=== PATIENT | female | born 1945 | race African-American/Black ===

== ENCOUNTER 2017-02-19 12:43 | Inpatient (IN) | payer MEDICARE ==
[~2017-02-19] VITALS: Ht 160 cm; Wt 57.4 kg
[2017-02-19] MEDS ORDERED: CloNIDine HCL 0.2 MG TABLET PO ONE (13:00)
[2017-02-19] MEDS ORDERED: ASPIRIN 325 MG TABLET PO ONE (13:00)
[2017-02-19] MEDS ORDERED: NITROGLYCERIN 2% (1 GM=INCH) PACKET TP ONE (13:15)
[2017-02-19 13:50] LABS: BASOPHILS % (AUTO) 0.4 % (0.0-2.0); EOSINOPHILS % (AUTO) 0.5 % (1.0-6.0); HEMATOCRIT 33.3 % (36-46); HEMOGLOBIN 11.4 g/dL (12.0-16.0); LYMPHOCYTES # (AUTO) 0.8 K/uL (1.0-4.8); MEAN CORPUSCULAR HEMOGLOBIN 30.3 pg (26.0-34.0); MEAN CORPUSCULAR HGB CONC 34.2 G/dL (31.0-37.0); MEAN CORPUSCULAR VOLUME 88 fL (80-100); MONOCYTES # (AUTO) 0.4 K/uL (0.1-1.0); MONOCYTES % (AUTO) 11.6 % (2.0-9.0); NEUTROPHILS # (AUTO) 2.2 K/uL (1.8-7.7); NEUTROPHILS % (AUTO) 64.5 % (40.0-70.0); PLATELET COUNT (AUTO) 276 K/uL (150-450); RED BLOOD CELL COUNT(AUTO) 3.76 MIL/uL (4.00-5.20); RED CELL DISTRIBUTION WIDTH 15.7 % (11.5-14.5); WHITE BLOOD COUNT (AUTO) 3.5 K/uL (4.5-11.0)
[2017-02-19 14:02] LABS: ANION GAP 12 mmol/L (8-16); CALCIUM, TOTAL 10.8 mg/dL (8.8-10.5); CARBON DIOXIDE 28 mmol/L (22-29); CHLORIDE 106 mmol/L (98-107); CREATININE 0.79 mg/dL (0.60-1.30); GLOMERULAR FILTR. RATE CALC > 60 mL/min (>60); POTASSIUM 3.4 mmol/L (3.5-5.1); SODIUM SERUM 146 mmol/L (136-145); UREA NITROGEN, BLOOD 7 mg/dL (7-18)
[2017-02-19 14:07] LABS: ALANINE AMINOTRANSFERASE 18 U/L (12-78); ALBUMIN 3.8 g/dL (3.4-5.0); ASPARTATE AMINOTRANSFERASE 24 U/L (15-37); BILIRUBIN,TOTAL 0.6 mg/dL (0.1-1.0); TOTAL PROTEIN, SERUM 8.2 g/dL (6.4-8.2)
[2017-02-19] MEDS ORDERED: ACETAMINOPHEN 325 MG TABLET PO PRN (15:15)
[2017-02-19] MEDS ORDERED: ONDANSETRON HCL 4 MG/2 ML VIAL IVP PRN (15:15)
[2017-02-19] MEDS ORDERED: 0.9% SODIUM CHLORIDE 10 ML SYRINGE IVP PRN (15:15)
[2017-02-19] MEDS ORDERED: QUET25TA PO (15:23)
[2017-02-19] MEDS ORDERED: GABA-529 PO (15:23)
[2017-02-19] MEDS ORDERED: HYDR100T28 PO (15:23)
[2017-02-19] MEDS ORDERED: LISI1TAB9 PO (15:23)
[2017-02-19] MEDS ORDERED: METH10 PO (15:23)
[2017-02-19] MEDS ORDERED: MORPHINE SULFATE 2 MG/ML SYRINGE IVP PRN (16:30)
[2017-02-19] MEDS ORDERED: ZOLPIDEM TARTRATE 5 MG TABLET PO PRN (16:30)
[2017-02-19] MEDS ORDERED: MAGNESIUM HYDROXIDE SUSPENSION 30 ML UDCUP PO PRN (16:30)
[2017-02-19] MEDS ORDERED: BISACODYL 10 MG RECTAL RECTAL SUPPOSITORY PR PRN (16:30)
[2017-02-19 18:08] VITALS: BP 157/88
[2017-02-19] MEDS ORDERED: INFLUENZA VIRUS VACCINE QVS 2017-18 (3YR+)/PF 60 MCG/0.5 ML SYRINGE IM ONE (18:30)
[2017-02-19 19:56] VITALS: BP 152/89
[2017-02-19] MEDS: HYDROCODONE/ACETAMINOPHEN 5-325 MG TABLET PO PRN (20:41)
[2017-02-19] MEDS: DOCUSATE SODIUM 100 MG CAPSULE PO SCH (20:41)
[2017-02-19] MEDS: QUEtiapine FUMARATE 25 MG TABLET PO SCH (20:41)
[2017-02-19] MEDS: HydrALAZINE HCL 50 MG TABLET PO SCH (20:42)
[2017-02-19] MEDS: GABAPENTIN 100 MG CAPSULE PO SCH (20:42)
[2017-02-19] MEDS: HYDROCHLOROTHIAZIDE 25 MG TABLET PO SCH (20:42)
[2017-02-19 23:40] VITALS: BP 150/86
[2017-02-20 04:54] VITALS: BP 149/91
[2017-02-20] MEDS: ACETAMINOPHEN 325 MG TABLET PO PRN (06:06)
[2017-02-20 06:47] LABS: BASOPHILS % (AUTO) 0.6 % (0.0-2.0); EOSINOPHILS % (AUTO) 1.4 % (1.0-6.0); HEMATOCRIT 30.3 % (36-46); HEMOGLOBIN 10.5 g/dL (12.0-16.0); LYMPHOCYTES # (AUTO) 0.8 K/uL (1.0-4.8); LYMPHOCYTES % (AUTO) 29.1 % (22.0-44.0); MEAN CORPUSCULAR HEMOGLOBIN 30.5 pg (26.0-34.0); MEAN CORPUSCULAR HGB CONC 34.6 G/dL (31.0-37.0); MEAN CORPUSCULAR VOLUME 88 fL (80-100); MONOCYTES # (AUTO) 0.4 K/uL (0.1-1.0); MONOCYTES % (AUTO) 14.9 % (2.0-9.0); NEUTROPHILS # (AUTO) 1.5 K/uL (1.8-7.7); PLATELET COUNT (AUTO) 237 K/uL (150-450); RED BLOOD CELL COUNT(AUTO) 3.44 MIL/uL (4.00-5.20); RED CELL DISTRIBUTION WIDTH 15.8 % (11.5-14.5); WHITE BLOOD COUNT (AUTO) 2.9 K/uL (4.5-11.0)
[2017-02-20] MEDS: ONDANSETRON HCL 4 MG/2 ML VIAL IVP PRN (06:48)
[2017-02-20 07:08] VITALS: BP 143/81
[2017-02-20 07:37] LABS: ALANINE AMINOTRANSFERASE 23 U/L (12-78); ALBUMIN 3.3 g/dL (3.4-5.0); ANION GAP 9 mmol/L (8-16); ASPARTATE AMINOTRANSFERASE 26 U/L (15-37); BILIRUBIN,TOTAL 0.6 mg/dL (0.1-1.0); CALCIUM, TOTAL 10.4 mg/dL (8.8-10.5); CARBON DIOXIDE 29 mmol/L (22-29); CHLORIDE 105 mmol/L (98-107); CREATININE 0.81 mg/dL (0.60-1.30); GLOMERULAR FILTR. RATE CALC > 60 mL/min (>60); SODIUM SERUM 143 mmol/L (136-145); THYROID STIMULATING HORMONE 0.63 uIU/mL (0.36-3.74); TOTAL PROTEIN, SERUM 7.5 g/dL (6.4-8.2); UREA NITROGEN, BLOOD 7 mg/dL (7-18)
[2017-02-20] MEDS: HydrALAZINE HCL 50 MG TABLET PO SCH ×3 (08:02→20:28)
[2017-02-20] MEDS: HEPARIN SODIUM,PORCINE 5,000 UNITS/ML VIAL SQ SCH ×4 (08:02→23:52)
[2017-02-20] MEDS: METHADONE HCL 10 MG TABLET PO SCH (08:02)
[2017-02-20] MEDS: PANTOPRAZOLE SODIUM 40 MG DR TABLET PO SCH (08:02)
[2017-02-20] MEDS: GABAPENTIN 100 MG CAPSULE PO SCH ×4 (08:02→20:28)
[2017-02-20] MEDS: DOCUSATE SODIUM 100 MG CAPSULE PO SCH ×2 (08:02→20:28)
[2017-02-20] MEDS ORDERED: LISINOPRIL 10 MG TABLET PO SCH (09:00)
[2017-02-20] MEDS ORDERED: POTASSIUM CHL 10 MEQ/WATER 50 ML IV PRN (11:00)
[2017-02-20] MEDS ORDERED: POTASSIUM CHLORIDE 20 MEQ ER TABLET PO PRN (11:00)
[2017-02-20] MEDS: POTASSIUM CHLORIDE 20 MEQ ER TABLET PO PRN ×2 (12:20→17:35)
[2017-02-20 12:24] LABS: APPEARANCE,URINE CLOUDY (CLEAR); GLUCOSE, URINE (UA) NEGATIVE (NEGATIVE); KETONES,URINE NEGATIVE (NEGATIVE); LEUKOCYTE ESTERASE ,URINE SMALL (NEGATIVE); OCCULT BLOOD,URINE NEGATIVE (NEGATIVE); PROTEIN,URINE TRACE (NEGATIVE)
[2017-02-20 13:09] LABS: RBC,URINE 0-2 /HPF (0-2)
[2017-02-20 13:10] LABS: CALCIUM OXALATE CRYSTALS,UR Rare /LPF (None Seen); SQUAMOUS EPITHELIAL CELL,UR Many /LPF (None Seen)
[2017-02-20] MEDS: AmLODIPine BESYLATE 5 MG TABLET PO SCH (14:52)
[2017-02-20 15:31] VITALS: BP 121/82
[2017-02-20 19:57] VITALS: BP 128/72
[2017-02-20] MEDS: HYDROCHLOROTHIAZIDE 25 MG TABLET PO SCH (20:28)
[2017-02-20] MEDS: QUEtiapine FUMARATE 25 MG TABLET PO SCH (20:28)
[2017-02-21 00:05] VITALS: BP 134/84
[2017-02-21 07:19] LABS: HEMATOCRIT 35.4 % (36-46); HEMOGLOBIN 12.1 g/dL (12.0-16.0); LYMPHOCYTES # (AUTO) 1.3 K/uL (1.0-4.8); LYMPHOCYTES % (AUTO) 32.7 % (22.0-44.0); MEAN CORPUSCULAR HEMOGLOBIN 30.6 pg (26.0-34.0); MEAN CORPUSCULAR HGB CONC 34.3 G/dL (31.0-37.0); MEAN CORPUSCULAR VOLUME 89 fL (80-100); MONOCYTES # (AUTO) 0.5 K/uL (0.1-1.0); MONOCYTES % (AUTO) 13.1 % (2.0-9.0); NEUTROPHILS % (AUTO) 52.2 % (40.0-70.0); PLATELET COUNT (AUTO) 288 K/uL (150-450); RED BLOOD CELL COUNT(AUTO) 3.96 MIL/uL (4.00-5.20); RED CELL DISTRIBUTION WIDTH 16.5 % (11.5-14.5); WHITE BLOOD COUNT (AUTO) 3.9 K/uL (4.5-11.0)
[2017-02-21 07:33] VITALS: BP 150/83
[2017-02-21] MEDS: DOCUSATE SODIUM 100 MG CAPSULE PO SCH ×2 (08:28→20:47)
[2017-02-21] MEDS: HEPARIN SODIUM,PORCINE 5,000 UNITS/ML VIAL SQ SCH ×3 (08:30→23:41)
[2017-02-21] MEDS: LISINOPRIL 10 MG TABLET PO SCH (08:30)
[2017-02-21] MEDS: ONDANSETRON HCL 4 MG/2 ML VIAL IVP PRN (08:30)
[2017-02-21] MEDS: HydrALAZINE HCL 50 MG TABLET PO SCH ×3 (08:30→20:47)
[2017-02-21] MEDS: GABAPENTIN 100 MG CAPSULE PO SCH ×4 (08:30→20:43)
[2017-02-21] MEDS: PANTOPRAZOLE SODIUM 40 MG DR TABLET PO SCH (08:31)
[2017-02-21] MEDS: AmLODIPine BESYLATE 5 MG TABLET PO SCH (08:31)
[2017-02-21] MEDS: METHADONE HCL 10 MG TABLET PO SCH (08:31)
[2017-02-21] MEDS: LOPERAMIDE HCL 2 MG CAPSULE PO PRN (10:19)
[2017-02-21] MEDS: HYDROCODONE/ACETAMINOPHEN 5-325 MG TABLET PO PRN ×2 (10:51→16:49)
[2017-02-21 11:38] VITALS: BP 132/80
[2017-02-21] MEDS: METOPROLOL SUCCINATE 25 MG ER TABLET PO SCH (14:43)
[2017-02-21 15:33] VITALS: BP 138/78
[2017-02-21 19:32] VITALS: BP 109/67
[2017-02-21] MEDS: HYDROCHLOROTHIAZIDE 25 MG TABLET PO SCH (20:42)
[2017-02-21] MEDS: QUEtiapine FUMARATE 25 MG TABLET PO SCH (20:42)
[2017-02-21 23:46] VITALS: BP 114/71
[2017-02-22] VITALS (7 sets, daily range): BP systolic 114–139; BP diastolic 68–81
[2017-02-22 06:10] LABS: BASOPHILS % (AUTO) 0.7 % (0.0-2.0); EOSINOPHILS % (AUTO) 3.2 % (1.0-6.0); HEMATOCRIT 33.4 % (36-46); HEMOGLOBIN 11.4 g/dL (12.0-16.0); LYMPHOCYTES % (AUTO) 37.1 % (22.0-44.0); MEAN CORPUSCULAR HEMOGLOBIN 30.6 pg (26.0-34.0); MEAN CORPUSCULAR HGB CONC 34.1 G/dL (31.0-37.0); MEAN CORPUSCULAR VOLUME 90 fL (80-100); MONOCYTES # (AUTO) 0.4 K/uL (0.1-1.0); MONOCYTES % (AUTO) 13.5 % (2.0-9.0); NEUTROPHILS # (AUTO) 1.3 K/uL (1.8-7.7); NEUTROPHILS % (AUTO) 45.5 % (40.0-70.0); PLATELET COUNT (AUTO) 283 K/uL (150-450); RED BLOOD CELL COUNT(AUTO) 3.72 MIL/uL (4.00-5.20); WHITE BLOOD COUNT (AUTO) 2.8 K/uL (4.5-11.0)
[2017-02-22 06:29] LABS: ALANINE AMINOTRANSFERASE 22 U/L (12-78); ALBUMIN 3.2 g/dL (3.4-5.0); ANION GAP 6 mmol/L (8-16); ASPARTATE AMINOTRANSFERASE 26 U/L (15-37); BILIRUBIN,TOTAL 0.3 mg/dL (0.1-1.0); CALCIUM, TOTAL 10.4 mg/dL (8.8-10.5); CARBON DIOXIDE 32 mmol/L (22-29); CHLORIDE 103 mmol/L (98-107); GLOMERULAR FILTR. RATE CALC > 60 mL/min (>60); POTASSIUM 3.8 mmol/L (3.5-5.1); SODIUM SERUM 141 mmol/L (136-145); UREA NITROGEN, BLOOD 11 mg/dL (7-18)
[2017-02-22] MEDS: ACETAMINOPHEN 325 MG TABLET PO PRN (06:34)
[2017-02-22] MEDS ORDERED: CeFAZolin 2 GM/DEXTROSE 50 ML IV ONE (07:00)
[2017-02-22 07:49] LABS: TOTAL PROTEIN, SERUM 7.5 g/dL (6.4-8.2)
[2017-02-22] MEDS: LOPERAMIDE HCL 2 MG CAPSULE PO PRN (08:15)
[2017-02-22] MEDS: ONDANSETRON HCL 4 MG/2 ML VIAL IVP PRN (08:15)
[2017-02-22] MEDS: DOCUSATE SODIUM 100 MG CAPSULE PO SCH ×2 (09:00→20:59)
[2017-02-22] MEDS: RINGERS SOLUTION,LACTATED 1,000 ML IV SCH ×2 (09:04→21:10)
[2017-02-22] MEDS: HEPARIN SODIUM,PORCINE 5,000 UNITS/ML VIAL SQ SCH ×3 (09:17→23:18)
[2017-02-22] MEDS: GABAPENTIN 100 MG CAPSULE PO SCH ×4 (09:18→20:51)
[2017-02-22] MEDS: HydrALAZINE HCL 50 MG TABLET PO SCH ×3 (09:18→20:51)
[2017-02-22] MEDS: METHADONE HCL 10 MG TABLET PO SCH (09:18)
[2017-02-22] MEDS: METOPROLOL SUCCINATE 25 MG ER TABLET PO SCH (09:19)
[2017-02-22] MEDS: AmLODIPine BESYLATE 5 MG TABLET PO SCH (09:19)
[2017-02-22] MEDS: PANTOPRAZOLE SODIUM 40 MG DR TABLET PO SCH (09:19)
[2017-02-22] MEDS: LISINOPRIL 10 MG TABLET PO SCH (09:20)
[2017-02-22] MEDS ORDERED: AMLO5TAB66 PO (10:56)
[2017-02-22] MEDS ORDERED: METO25XL PO (10:56)
[2017-02-22] MEDS ORDERED: LISI10TA7 PO (10:56)
[2017-02-22] MEDS ORDERED: LOPE2 PO (10:57)
[2017-02-22] MEDS: HYDROCODONE/ACETAMINOPHEN 5-325 MG TABLET PO PRN ×2 (12:48→20:51)
[2017-02-22] MEDS: HYDROCHLOROTHIAZIDE 25 MG TABLET PO SCH (20:54)
[2017-02-22] MEDS: QUEtiapine FUMARATE 25 MG TABLET PO SCH (20:54)
[2017-02-23] MEDS: ACETAMINOPHEN 325 MG TABLET PO PRN (00:17)
[2017-02-23] MEDS: HYDROCODONE/ACETAMINOPHEN 5-325 MG TABLET PO PRN ×3 (02:19→18:31)
[2017-02-23 04:29] VITALS: BP 119/74
[2017-02-23 07:34] VITALS: BP 137/72
[2017-02-23] MEDS: DOCUSATE SODIUM 100 MG CAPSULE PO SCH (08:01)
[2017-02-23] MEDS: METHADONE HCL 10 MG TABLET PO SCH (08:01)
[2017-02-23] MEDS: GABAPENTIN 100 MG CAPSULE PO SCH ×3 (08:02→16:27)
[2017-02-23] MEDS: PANTOPRAZOLE SODIUM 40 MG DR TABLET PO SCH (08:02)
[2017-02-23] MEDS: ONDANSETRON HCL 4 MG/2 ML VIAL IVP PRN (08:02)
[2017-02-23] MEDS: HydrALAZINE HCL 50 MG TABLET PO SCH ×2 (08:02→16:27)
[2017-02-23] MEDS: HEPARIN SODIUM,PORCINE 5,000 UNITS/ML VIAL SQ SCH ×2 (08:03→16:28)
[2017-02-23] MEDS: LISINOPRIL 10 MG TABLET PO SCH (09:48)
[2017-02-23] MEDS: AmLODIPine BESYLATE 5 MG TABLET PO SCH (09:49)
[2017-02-23] MEDS: RINGERS SOLUTION,LACTATED 1,000 ML IV SCH (10:53)
[2017-02-23] MEDS: METOPROLOL SUCCINATE 25 MG ER TABLET PO SCH (10:58)
[2017-02-23 11:25] VITALS: BP 141/75
[2017-02-23 15:55] VITALS: BP 131/69
== END 2017-02-23 18:45 | DRG 641 ==
LOC: EMS 12:51 → 5S 16:02
PROVIDERS: ADMIT Internal Medicine; ATTEND Internal Medicine
DX: E87.0 Hyperosmolality and hypernatremia (principal); G25.82 Stiff-man syndrome; R65.10 Systemic inflammatory response syndrome (SIRS) of non-infectious origin without acute organ dysfunction; I16.0 Hypertensive urgency; E87.6 Hypokalemia; M54.9 Dorsalgia, unspecified; I44.7 Left bundle-branch block, unspecified; I10 Essential (primary) hypertension; R50.9 Fever, unspecified; R74.8 Abnormal levels of other serum enzymes; R10.13 Epigastric pain; R07.9 Chest pain, unspecified; Z79.899 Other long term (current) drug therapy; Z88.2 Allergy status to sulfonamides; Z87.440 Personal history of urinary (tract) infections; Z86.19 Personal history of other infectious and parasitic diseases
CPT/HCPCS: 84132; 84443; 87040; 87081; 87086; 90471; 93005; 93306; 97162; 97166; 97530; 99291; J0690; J1644; J2405; J7120

== ENCOUNTER 2017-03-06 11:44 | Inpatient (IN) | payer MEDICARE ==
[~2017-03-06] VITALS: Ht 165.1 cm; Wt 58.7 kg
[~2017-03-06 11:44] MED LIST: AMLO5TAB66 PO; GABA-529 PO; HYDR100T28 PO; LISI10TA7 PO; LOPE2 PO; METH10 PO; METO25XL PO; QUET25TA PO
[2017-03-06] MEDS ORDERED: LIDO700A30 TD (12:33)
[2017-03-06] MEDS ORDERED: HYDR25TA PO (12:33)
[2017-03-06] MEDS ORDERED: PANT40TA25 PO (12:33)
[2017-03-06] MEDS ORDERED: SODIUM CHLORIDE 0.9% 1,000 ML IV ONE (12:45)
[2017-03-06] MEDS ORDERED: ALBUTEROL SULFATE 2.5 MG/0.5 ML NEB SOLUTION NEB ONE (12:45)
[2017-03-06] MEDS ORDERED: IPRATROPIUM BROMIDE 0.5 MG/2.5 ML NEB SOLUTION NEB ONE (12:45)
[2017-03-06] MEDS ORDERED: KETOROLAC TROMETHAMINE 30 MG/ML VIAL IVP ONE (12:45)
[2017-03-06] MEDS ORDERED: ASPIRIN 81 MG CHEWABLE TABLET PO ONE (13:30)
[2017-03-06] MEDS ORDERED: MORPHINE SULFATE 4 MG/ML SYRINGE IVP ONE ×2 (15:00→17:00)
[2017-03-06] MEDS ORDERED: ONDANSETRON HCL 4 MG/2 ML VIAL IVP ONE ×2 (15:00→17:00)
[2017-03-06 15:22] LABS: BASOPHILS % (AUTO) 0.1 % (0.0-2.0); EOSINOPHILS % (AUTO) 0.1 % (1.0-6.0); HEMATOCRIT 32.9 % (36-46); HEMOGLOBIN 11.3 g/dL (12.0-16.0); LYMPHOCYTES # (AUTO) 0.6 K/uL (1.0-4.8); LYMPHOCYTES % (AUTO) 19.5 % (22.0-44.0); MEAN CORPUSCULAR HEMOGLOBIN 30.4 pg (26.0-34.0); MEAN CORPUSCULAR HGB CONC 34.4 G/dL (31.0-37.0); MEAN CORPUSCULAR VOLUME 88 fL (80-100); MONOCYTES # (AUTO) 0.6 K/uL (0.1-1.0); MONOCYTES % (AUTO) 18.4 % (2.0-9.0); NEUTROPHILS # (AUTO) 1.9 K/uL (1.8-7.7); NEUTROPHILS % (AUTO) 61.9 % (40.0-70.0); PLATELET COUNT (AUTO) 209 K/uL (150-450); RED BLOOD CELL COUNT(AUTO) 3.73 MIL/uL (4.00-5.20); RED CELL DISTRIBUTION WIDTH 15.4 % (11.5-14.5)
[2017-03-06 15:23] LABS: ANION GAP 14 mmol/L (8-16); CALCIUM, TOTAL 10.7 mg/dL (8.8-10.5); CARBON DIOXIDE 25 mmol/L (22-29); CHLORIDE 98 mmol/L (98-107); GLOMERULAR FILTR. RATE CALC 54 mL/min (>60); GLUCOSE,RANDOM 122 mg/dL (70-110); POTASSIUM 3.7 mmol/L (3.5-5.1); SODIUM SERUM 137 mmol/L (136-145); UREA NITROGEN, BLOOD 24 mg/dL (7-18)
[2017-03-06 15:29] LABS: ALANINE AMINOTRANSFERASE 38 U/L (12-78); ALBUMIN 3.4 g/dL (3.4-5.0); ALKALINE PHOSPHATASE 56 U/L (46-116); ASPARTATE AMINOTRANSFERASE 47 U/L (15-37); BILIRUBIN,TOTAL 0.4 mg/dL (0.1-1.0); CREATINE KINASE, TOTAL 60 U/L (26-192); TOTAL PROTEIN, SERUM 8.1 g/dL (6.4-8.2)
[2017-03-06 15:31] LABS: INFLUENZA TYPE B NEGATIVE FOR TYPE B (NEGATIVE)
[2017-03-06 15:35] LABS: INFLUENZA TYPE A POSITIVE FOR TYPE A (NEGATIVE)
[2017-03-06 15:38] LABS: B-TYPE NATRIURETIC PEPTIDE 35 pg/mL (0-100)
[2017-03-06 15:41] LABS: PLATELET MORPHOLOGY COMMENT NORMAL
[2017-03-06] MEDS ORDERED: OSELTAMIVIR PHOSPHATE 75 MG CAPSULE PO ONE (16:30)
[2017-03-06] MEDS ORDERED: ONDANSETRON HCL 4 MG/2 ML VIAL IVP PRN (17:00)
[2017-03-06] MEDS ORDERED: ACETAMINOPHEN 325 MG TABLET PO PRN (17:00)
[2017-03-06] MEDS ORDERED: MORPHINE SULFATE 4 MG/ML SYRINGE IVP PRN (17:00)
[2017-03-06] MEDS ORDERED: 0.9% SODIUM CHLORIDE 10 ML SYRINGE IVP PRN (17:00)
[2017-03-06] MEDS ORDERED: HYDROCODONE/ACETAMINOPHEN 5-325 MG TABLET PO PRN (17:00)
[2017-03-06 17:24] LABS: APPEARANCE,URINE CLOUDY (CLEAR); BILIRUBIN,URINE NEGATIVE (NEGATIVE); GLUCOSE, URINE (UA) NEGATIVE (NEGATIVE); KETONES,URINE NEGATIVE (NEGATIVE); LEUKOCYTE ESTERASE ,URINE MODERATE (NEGATIVE); NITRATE,URINE NEGATIVE (NEGATIVE); OCCULT BLOOD,URINE NEGATIVE (NEGATIVE); PROTEIN,URINE TRACE (NEGATIVE); UROBILINOGEN,URINE 0.2 mg/dL (<=1.0)
[2017-03-06 17:34] LABS: BACTERIA,URINE Many /HPF (None Seen); SQUAMOUS EPITHELIAL CELL,UR Few /LPF (None Seen); WBC,URINE 26-50 /HPF (0-5)
[2017-03-06] MEDS ORDERED: LORazepam 2 MG/ML VIAL IVP ONE (19:15)
[2017-03-06] MEDS: IPRATROPIUM BROMIDE 0.5 MG/2.5 ML NEB SOLUTION NEB SCH ×2 (20:58→23:17)
[2017-03-06] MEDS: ALBUTEROL SULFATE 2.5 MG/0.5 ML NEB SOLUTION NEB SCH ×2 (20:58→23:17)
[2017-03-06 21:03] VITALS: BP 123/77
[2017-03-07 00:15] VITALS: BP 123/76
[2017-03-07] MEDS: DEXTROSE 5%-0.9% SODIUM CHL 1,000 ML IV SCH ×2 (00:33→14:18)
[2017-03-07] MEDS: ALBUTEROL SULFATE 2.5 MG/0.5 ML NEB SOLUTION NEB SCH ×4 (02:43→14:35)
[2017-03-07] MEDS: IPRATROPIUM BROMIDE 0.5 MG/2.5 ML NEB SOLUTION NEB SCH ×4 (02:43→14:35)
[2017-03-07 05:40] VITALS: BP 124/64
[2017-03-07 07:23] LABS: MAGNESIUM 1.6 mg/dL (1.80-2.40)
[2017-03-07 07:24] LABS: BASOPHILS # (AUTO) 0.01 K/uL (0.00-0.20); BASOPHILS % (AUTO) 0.5 % (0.0-2.0); EOSINOPHILS # (AUTO) 0.01 K/uL (0.00-0.70); EOSINOPHILS % (AUTO) 0.43 % (1.0-6.0); HEMATOCRIT 31.9 % (36-46); HEMOGLOBIN 10.6 g/dL (12.0-16.0); LYMPHOCYTES # (AUTO) 0.6 K/uL (1.0-4.8); LYMPHOCYTES % (AUTO) 23.2 % (22.0-44.0); MEAN CORPUSCULAR HEMOGLOBIN 30.2 pg (26.0-34.0); MEAN CORPUSCULAR HGB CONC 33.2 G/dL (31.0-37.0); MEAN CORPUSCULAR VOLUME 91 fL (80-100); MONOCYTES # (AUTO) 0.4 K/uL (0.1-1.0); NEUTROPHILS # (AUTO) 1.7 K/uL (1.8-7.7); NEUTROPHILS % (AUTO) 61.9 % (40.0-70.0); PLATELET COUNT (AUTO) 163 K/uL (150-450); RED BLOOD CELL COUNT(AUTO) 3.51 MIL/uL (4.00-5.20); RED CELL DISTRIBUTION WIDTH 15.9 % (11.5-14.5)
[2017-03-07 10:00] LABS: ALBUMIN 3.1 g/dL (3.4-5.0); BILIRUBIN,TOTAL 0.2 mg/dL (0.1-1.0); CALCIUM, TOTAL 9.7 mg/dL (8.8-10.5); CREATININE 1.23 mg/dL (0.60-1.30); POTASSIUM 4.1 mmol/L (3.5-5.1); TOTAL PROTEIN, SERUM 7.5 g/dL (6.4-8.2)
[2017-03-07 11:54] VITALS: BP 133/79
[2017-03-07 14:49] VITALS: BP 140/88
[2017-03-07] MEDS: LISINOPRIL 10 MG TABLET PO SCH (15:29)
[2017-03-07] MEDS: METHADONE HCL 10 MG TABLET PO SCH (15:29)
[2017-03-07] MEDS: GABAPENTIN 100 MG CAPSULE PO SCH ×2 (15:29→20:37)
[2017-03-07 19:18] VITALS: BP 131/77
[2017-03-07] MEDS: QUEtiapine FUMARATE 25 MG TABLET PO SCH (20:34)
[2017-03-07] MEDS: OSELTAMIVIR PHOSPHATE 75 MG CAPSULE PO SCH (20:34)
[2017-03-07] MEDS: HYDROCHLOROTHIAZIDE 25 MG TABLET PO SCH (20:35)
[2017-03-07] MEDS: OXYGEN THERAPY IH SCH (20:37)
[2017-03-07 23:47] VITALS: BP 127/63
[2017-03-08 04:46] VITALS: BP 132/87
[2017-03-08] MEDS: DEXTROSE 5%-0.9% SODIUM CHL 1,000 ML IV SCH (05:54)
[2017-03-08] MEDS: OXYGEN THERAPY IH SCH (08:00)
[2017-03-08 08:19] VITALS: BP 181/89
[2017-03-08] MEDS: GABAPENTIN 100 MG CAPSULE PO SCH ×4 (08:42→20:33)
[2017-03-08] MEDS: AmLODIPine BESYLATE 5 MG TABLET PO SCH (08:42)
[2017-03-08] MEDS: LISINOPRIL 10 MG TABLET PO SCH (08:42)
[2017-03-08] MEDS: OSELTAMIVIR PHOSPHATE 75 MG CAPSULE PO SCH ×2 (08:42→20:33)
[2017-03-08] MEDS: METOPROLOL SUCCINATE 25 MG ER TABLET PO SCH (08:42)
[2017-03-08] MEDS: PANTOPRAZOLE SODIUM 40 MG DR TABLET PO SCH (08:42)
[2017-03-08] MEDS: METHADONE HCL 10 MG TABLET PO SCH (08:43)
[2017-03-08] MEDS: LIDOCAINE HCL 5% TRANSDERMAL PATCH TD SCH (08:47)
[2017-03-08 12:01] VITALS: BP 145/83
[2017-03-08] MEDS ORDERED: MAGNESIUM SULFATE 2 GM in DEXTROSE 5%-WATER 50 ML IV ONE (13:00)
[2017-03-08] MEDS: HYDROCODONE/ACETAMINOPHEN 5-325 MG TABLET PO PRN ×2 (13:35→20:33)
[2017-03-08 16:09] VITALS: BP 142/73
[2017-03-08 19:40] VITALS: BP 120/69
[2017-03-08] MEDS: QUEtiapine FUMARATE 25 MG TABLET PO SCH (20:33)
[2017-03-08] MEDS: HYDROCHLOROTHIAZIDE 25 MG TABLET PO SCH (20:33)
[2017-03-08] MEDS: -LIDODERM PATCH NOTE- MISC SCH (20:38)
[2017-03-08 23:39] VITALS: BP 135/77
[2017-03-09 04:55] VITALS: BP 148/92
[2017-03-09 07:17] VITALS: BP 127/74
[2017-03-09 07:48] LABS: ANION GAP 8 mmol/L (8-16); CALCIUM, TOTAL 9.7 mg/dL (8.8-10.5); CARBON DIOXIDE 26 mmol/L (22-29); CHLORIDE 106 mmol/L (98-107); CREATININE 0.93 mg/dL (0.60-1.30); GLOMERULAR FILTR. RATE CALC > 60 mL/min (>60); GLUCOSE,RANDOM 94 mg/dL (70-110); POTASSIUM 4.3 mmol/L (3.5-5.1); SODIUM SERUM 140 mmol/L (136-145); UREA NITROGEN, BLOOD 6 mg/dL (7-18)
[2017-03-09 07:52] LABS: HEMATOCRIT 30.8 % (36-46); HEMOGLOBIN 10.2 g/dL (12.0-16.0); MEAN CORPUSCULAR HEMOGLOBIN 30.1 pg (26.0-34.0); MEAN CORPUSCULAR HGB CONC 33.2 G/dL (31.0-37.0); MEAN CORPUSCULAR VOLUME 91 fL (80-100); PLATELET COUNT (AUTO) 138 K/uL (150-450); RED CELL DISTRIBUTION WIDTH 15.4 % (11.5-14.5)
[2017-03-09] MEDS: GABAPENTIN 100 MG CAPSULE PO SCH ×4 (08:22→20:22)
[2017-03-09] MEDS: PANTOPRAZOLE SODIUM 40 MG DR TABLET PO SCH (08:22)
[2017-03-09] MEDS: LISINOPRIL 10 MG TABLET PO SCH (08:22)
[2017-03-09] MEDS: OSELTAMIVIR PHOSPHATE 75 MG CAPSULE PO SCH ×2 (08:22→20:22)
[2017-03-09] MEDS: AmLODIPine BESYLATE 5 MG TABLET PO SCH (08:22)
[2017-03-09] MEDS: METOPROLOL SUCCINATE 25 MG ER TABLET PO SCH (08:22)
[2017-03-09] MEDS: METHADONE HCL 10 MG TABLET PO SCH (08:22)
[2017-03-09] MEDS: LIDOCAINE HCL 5% TRANSDERMAL PATCH TD SCH (08:23)
[2017-03-09] MEDS: OXYGEN THERAPY IH SCH ×2 (08:23→20:31)
[2017-03-09 08:59] LABS: BAND NEUTROPHILS % (MANUAL) 5 % (1-5); LYMPHOCYTES % (MANUAL) 54 % (22-44); MONOCYTES % (MANUAL) 5 % (2-9); SEGMENTED NEUTROPHILS % 36 % (40-70)
[2017-03-09] MEDS: DEXTROSE 5%-0.9% SODIUM CHL 1,000 ML IV SCH ×2 (09:24→20:22)
[2017-03-09] MEDS ORDERED: MAGNESIUM SULFATE 4 GM/WATER 100 ML IV PRN (11:30)
[2017-03-09] MEDS ORDERED: MAGNESIUM OXIDE 400 MG TABLET PO PRN (11:30)
[2017-03-09 11:37] VITALS: BP 132/79
[2017-03-09 12:48] LABS: ALBUMIN 3.1 g/dL (3.4-5.0)
[2017-03-09] MEDS: MAGNESIUM SULFATE 2 GM in DEXTROSE 5%-WATER 50 ML IV PRN (13:01)
[2017-03-09] MEDS: HYDROCODONE/ACETAMINOPHEN 5-325 MG TABLET PO PRN (14:50)
[2017-03-09 15:41] VITALS: BP 138/76
[2017-03-09 19:42] VITALS: BP 114/80
[2017-03-09] MEDS: QUEtiapine FUMARATE 25 MG TABLET PO SCH (20:22)
[2017-03-09] MEDS: HYDROCHLOROTHIAZIDE 25 MG TABLET PO SCH (20:22)
[2017-03-09] MEDS: -LIDODERM PATCH NOTE- MISC SCH (21:08)
[2017-03-10] VITALS (7 sets, daily range): BP systolic 118–150; BP diastolic 66–90
[2017-03-10] MEDS: HYDROCODONE/ACETAMINOPHEN 5-325 MG TABLET PO PRN ×2 (02:34→16:01)
[2017-03-10] MEDS: DEXTROSE 5%-0.9% SODIUM CHL 1,000 ML IV SCH (08:00)
[2017-03-10] MEDS: OXYGEN THERAPY IH SCH ×2 (08:00→20:00)
[2017-03-10] MEDS: OSELTAMIVIR PHOSPHATE 75 MG CAPSULE PO SCH ×2 (08:03→20:38)
[2017-03-10] MEDS: LISINOPRIL 10 MG TABLET PO SCH (08:03)
[2017-03-10] MEDS: GABAPENTIN 100 MG CAPSULE PO SCH ×4 (08:03→20:38)
[2017-03-10] MEDS: METHADONE HCL 10 MG TABLET PO SCH (08:03)
[2017-03-10] MEDS: AmLODIPine BESYLATE 5 MG TABLET PO SCH (08:03)
[2017-03-10] MEDS: METOPROLOL SUCCINATE 25 MG ER TABLET PO SCH (08:04)
[2017-03-10] MEDS: LIDOCAINE HCL 5% TRANSDERMAL PATCH TD SCH (08:04)
[2017-03-10] MEDS: PANTOPRAZOLE SODIUM 40 MG DR TABLET PO SCH (08:04)
[2017-03-10] MEDS: QUEtiapine FUMARATE 25 MG TABLET PO SCH (20:38)
[2017-03-10] MEDS: HYDROCHLOROTHIAZIDE 25 MG TABLET PO SCH (20:38)
[2017-03-10] MEDS: -LIDODERM PATCH NOTE- MISC SCH (20:39)
[2017-03-11] VITALS (7 sets, daily range): BP systolic 124–162; BP diastolic 68–91
[2017-03-11] MEDS: OXYGEN THERAPY IH SCH (08:00)
[2017-03-11] MEDS: PANTOPRAZOLE SODIUM 40 MG DR TABLET PO SCH (08:03)
[2017-03-11] MEDS: METOPROLOL SUCCINATE 25 MG ER TABLET PO SCH (08:03)
[2017-03-11] MEDS: GABAPENTIN 100 MG CAPSULE PO SCH ×4 (08:03→19:53)
[2017-03-11] MEDS: LISINOPRIL 10 MG TABLET PO SCH (08:03)
[2017-03-11] MEDS: OSELTAMIVIR PHOSPHATE 75 MG CAPSULE PO SCH ×2 (08:03→19:53)
[2017-03-11] MEDS: METHADONE HCL 10 MG TABLET PO SCH (08:04)
[2017-03-11] MEDS: LIDOCAINE HCL 5% TRANSDERMAL PATCH TD SCH (08:04)
[2017-03-11] MEDS: AmLODIPine BESYLATE 5 MG TABLET PO SCH (08:04)
[2017-03-11] MEDS: HYDROCODONE/ACETAMINOPHEN 5-325 MG TABLET PO PRN (16:46)
[2017-03-11] MEDS: QUEtiapine FUMARATE 25 MG TABLET PO SCH (19:53)
[2017-03-11] MEDS: HYDROCHLOROTHIAZIDE 25 MG TABLET PO SCH (20:16)
[2017-03-11] MEDS ORDERED: SODIUM CHLORIDE 0.9% 250 ML IV ONE (20:52)
[2017-03-11] MEDS: MAGNESIUM SULFATE 2 GM in DEXTROSE 5%-WATER 50 ML IV PRN (21:55)
[2017-03-11] MEDS: -LIDODERM PATCH NOTE- MISC SCH (22:00)
[2017-03-12] MEDS: HYDROCODONE/ACETAMINOPHEN 5-325 MG TABLET PO PRN ×3 (00:58→13:04)
[2017-03-12 05:41] VITALS: BP 140/83
[2017-03-12 07:22] VITALS: BP 138/66
[2017-03-12] MEDS: LISINOPRIL 10 MG TABLET PO SCH (08:17)
[2017-03-12] MEDS: PANTOPRAZOLE SODIUM 40 MG DR TABLET PO SCH (08:17)
[2017-03-12] MEDS: METHADONE HCL 10 MG TABLET PO SCH (08:18)
[2017-03-12] MEDS: AmLODIPine BESYLATE 5 MG TABLET PO SCH (09:00)
[2017-03-12] MEDS: GABAPENTIN 100 MG CAPSULE PO SCH ×3 (09:00→16:22)
[2017-03-12] MEDS: METOPROLOL SUCCINATE 25 MG ER TABLET PO SCH (09:00)
[2017-03-12] MEDS: OSELTAMIVIR PHOSPHATE 75 MG CAPSULE PO SCH (11:00)
[2017-03-12] MEDS: LIDOCAINE HCL 5% TRANSDERMAL PATCH TD SCH (11:11)
[2017-03-12] MEDS ORDERED: ONDANSETRON HCL 4 MG/2 ML VIAL IM PRN (11:30)
[2017-03-12 11:43] VITALS: BP 153/89
[2017-03-12 11:45] VITALS: BP 153/89
[2017-03-12] MEDS ORDERED: ONDANSETRON HCL 4 MG/2 ML VIAL IVP PRN (11:49)
[2017-03-12 16:00] VITALS: BP 135/85
== END 2017-03-12 19:30 | disposition home or self-care (01) | DRG 193 ==
LOC: EMS 11:48 → 5N 18:11 → 6N 03-11 15:48 → 4E 03-12 05:30
PROVIDERS: ADMIT Internal Medicine; ATTEND Internal Medicine
DX: J10.1 Influenza due to other identified influenza virus with other respiratory manifestations (principal); R53.2 Functional quadriplegia; G25.82 Stiff-man syndrome; G89.4 Chronic pain syndrome; I10 Essential (primary) hypertension; I44.7 Left bundle-branch block, unspecified; Z74.01 Bed confinement status; Z79.82 Long term (current) use of aspirin; Z79.891 Long term (current) use of opiate analgesic; Z87.440 Personal history of urinary (tract) infections; Z79.899 Other long term (current) drug therapy; Z88.2 Allergy status to sulfonamides
CPT/HCPCS: 51701; 83735; 87040; 87081; 87086; 87804; 93005; 94640; 96361; 96374; 96375; 96376; 99285; J1885; J2060; J2270; J2405; J3475; J7030; J7042; J7050; J7060